=== PATIENT | male | born 1990 | race Two or more races ===

== ENCOUNTER → 2018-03-12 | Emergency (ER) | payer OTHER ==
[~2018-03-12] VITALS: Ht 195.6 cm; Wt 158.8 kg
[~2018-03-12] MED LIST: VISTARIL50 MG PO
== END | disposition home or self-care (01) ==
LOC: ER 05:15
DX: H66.91 Otitis media, unspecified, right ear (principal)

== ENCOUNTER → 2018-03-12 | Emergency (ER) | payer OTHER | END | disposition left against medical advice (07) | LOC: ER 02:43 | DX: Z53.21 Procedure and treatment not carried out due to patient leaving prior to being seen by health care provider (principal) ==